=== PATIENT | female | born 1935 | race Asian ===

== ENCOUNTER 2017-05-07 14:45 | Emergency (ER) | payer MEDICARE, OTHER ==
[~2017-05-07] VITALS: Ht 154.9 cm; Wt 46.4 kg
[~2017-05-07 14:45] MED LIST: ALPR-475 PO; ASPI-496 PO; Atorvastatin Calcium PO; BUTA1CAP57 PO; CEPH-368 PO; ERYT250C8 PO; LISI-167 PO; METO25TA35 PO; OLME1TAB44 PO; ONDA4TAB10 PO; PENI250T91 PO
[2017-05-07] MEDS ORDERED: ONDANSETRON 2MG/ML, 2ML ONE (15:21)
[2017-05-07] MEDS ORDERED: LORazepam 2 MG/ML, 1ML ONE (15:22)
[2017-05-07] MEDS ORDERED: SODIUM CHLORIDE 0.9% 1,000ML IVBOLUS ONE (15:30)
[2017-05-07] MEDS ORDERED: SODIUM CHLORIDE FLUSH 10ML SYR IVF ONE (15:30)
[2017-05-07] MEDS ORDERED: LORazepam 2 MG/ML, 1ML IVPush ONE (15:30)
[2017-05-07] MEDS ORDERED: ONDANSETRON 2MG/ML, 2ML IVPush ONE (15:30)
[2017-05-07 15:49] VITALS: BP 138/81
[2017-05-07 15:51] LABS: BASOPHILS # (AUTO) 0.03 x10^3/uL (0-0.1); BASOPHILS % (AUTO) 0 % (0-1); EOSINOPHILS # (AUTO) 0.03 x10^3/uL (0-0.4); EOSINOPHILS % (AUTO) 0 % (1-7); LYMPHOCYTES # (AUTO) 2.64 x10^3/uL (1-3.4); LYMPHOCYTES % (AUTO) 24 % (22-44); MD NO; MEAN CORPUSCULAR HEMOGLOBIN 31.8 pg (27.0-34.8); MEAN CORPUSCULAR HGB CONC 33.6 g/dL (32.4-35.8); MEAN CORPUSCULAR VOLUME 94.7 fL (80-100); MEAN PLATELET VOLUME 7.1 fL (7.4-10.4); MONOCYTES # (AUTO) 0.73 x10^3/uL (0.2-0.8); MONOCYTES % (AUTO) 7 % (2-9); NEUTROPHILS # (AUTO) 7.72 x10^3/uL (1.8-6.8); NEUTROPHILS % (AUTO) 69 % (42-75); PLATELET COUNT 262 x10^3/uL (130-400); RED BLOOD COUNT 4.28 x10^6/uL (3.82-5.3)
[2017-05-07 16:00] LABS: ALBUMIN 3.2 g/dL (3.4-5.0); ANION GAP 7 mmol/L (5-15); CALCIUM 8.6 mg/dL (8.5-10.1); CHLORIDE 102 mmol/L (98-107); CREATININE 0.81 mg/dL (0.55-1.02)
== END 2017-05-07 18:31 | disposition home or self-care (01) ==
LOC: ED 16:21
DX: Z76.0 Encounter for issue of repeat prescription (principal); F41.1 Generalized anxiety disorder; I10 Essential (primary) hypertension
CPT/HCPCS: 36415; 80048; 82040; 85025; 93005; 96361; 96374; 96375; 99285; J2060; J2405; J7030

== ENCOUNTER 2019-10-25 23:33 | Inpatient (IN) | payer MEDICARE ==
[~2019-10-25] VITALS: Ht 149.9 cm; Wt 46.4 kg
[~2019-10-25 23:33] MED LIST changes: -ALPR-475 PO; +ALPR0.5T7 PO; +ERYT250C37 PO; -ERYT250C8 PO; -OLME1TAB44 PO; +OLME1TAB86 PO
--- NOTE | 2019-10-25 23:33 | NUR ---
BROUGHT IN BY MARY FROM HOME. MAYBE PATIENT CALLED 911, EMS ARRIVAL PATIENT HAVING DIFFICULTY BREATHING WITH OXYGEN SATURATION 70% RA. SOLU MEDROL 125 MG GIVEN PRESS BREAKER. CPAP ON ARRIVAL.
--- NOTE | 2019-10-25 23:45 | NUR ---
PATIENT INTUBATED. PLAN TO PLACE CENTRAL LINE.
[2019-10-26] MEDS ORDERED: ALBUTEROL SULFATE 2.5 MG/3 ML NPPB SCH
[2019-10-26] MEDS ORDERED: SODIUM CHLORIDE 0.9% 1,000ML IVBOLUS ONE
[2019-10-26] MEDS ORDERED: SODIUM CHLORIDE FLUSH 10ML SYR IVF ONE
--- NOTE | 2019-10-26 00:10 | NUR ---
CENTRAL LINE PLACED. AWAITING XRAY FOR PLACEMENT.
--- NOTE | 2019-10-26 00:15 | NUR ---
BARRERA PLACED WITH MINIMAL URINE OUTOUT.
[2019-10-26] MEDS ORDERED: PROPOFOL 100 ML IV PRN (00:19)
[2019-10-26] MEDS ORDERED: ETOMIDATE 20 MG/10 ML IVPush ONE (00:30)
[2019-10-26] MEDS ORDERED: MIDAZOLAM 1 MG/ML, 2ML IVPush ONE (00:30)
[2019-10-26] MEDS ORDERED: ROCURONIUM 10 MG/ML,10ML IVPush ONE (00:30)
--- NOTE | 2019-10-26 00:45 | NUR ---
IVF HUNG. BLOOD PRESSURE ELEVATED. AWARE.
--- NOTE | 2019-10-26 00:45 | NUR ---
XRAY DONE. [employer]AR [employer]ER AT BEDSIDE FOR BLOOD DRAW.
[2019-10-26 01:17] LABS: MEAN CORPUSCULAR HEMOGLOBIN 31.3 pg (27.0-34.8); MEAN CORPUSCULAR HGB CONC 32.3 g/dL (32.4-35.8); MEAN PLATELET VOLUME 8.3 fL (7.4-10.4); PLATELET COUNT 234 x10^3/uL (130-400); RED BLOOD COUNT 4.66 x10^6/uL (3.82-5.3); RED CELL DISTRIBUTION WIDTH 14.7 % (9.6-15.2)
[2019-10-26 01:26] LABS: ALANINE AMINOTRANSFERASE 78 U/L (12-78); ALBUMIN 3.1 g/dL (3.4-5.0); ANION GAP 8 mmol/L (5-15); CALCIUM 7.9 mg/dL (8.5-10.1); CHLORIDE 111 mmol/L (98-107); CREATININE 1.23 mg/dL (0.55-1.02)
[2019-10-26 01:30] LABS: ALKALINE PHOSPHATASE 106 U/L (45-117); BILIRUBIN,TOTAL 0.5 mg/dL (0.2-1.0); TOTAL PROTEIN 7.1 g/dL (6.4-8.2)
[2019-10-26] MEDS ORDERED: hydrALAzine 20 MG/ML, 1ML IVPush PRN (01:30)
[2019-10-26] MEDS ORDERED: morphine SULFATE 10 MG/ML, 1ML IVPush PRN (01:30)
[2019-10-26] MEDS ORDERED: DOCUSATE 100 MG CAPSULE PO PRN (01:30)
[2019-10-26] MEDS ORDERED: OXYcodone IR 5MG TABLET PO PRN (01:30)
[2019-10-26] MEDS ORDERED: PROMETHAZINE 25 MG/ML, 1ML IM PRN (01:30)
[2019-10-26] MEDS ORDERED: ONDANSETRON ODT 4 MG PO PRN (01:30)
[2019-10-26] MEDS ORDERED: ENOXAPARIN 40 MG/0.4 ML SQ SCH (01:30)
[2019-10-26 01:35] LABS: TROPONIN I 0.611 ng/mL (0.000-0.045)
[2019-10-26] MEDS ORDERED: FUROSEMIDE 40 MG/4 ML ONE (01:43)
[2019-10-26] MEDS ORDERED: CEFTRIAXONE PMX 1GM/50ML 50 ML ONE (01:44)
[2019-10-26] MEDS ORDERED: ENOXAPARIN 40 MG/0.4 ML ONE (01:44)
[2019-10-26 01:55] LABS: FREE T4 (FREE THYROXINE) 0.82 ng/dL (0.76-1.46)
[2019-10-26 01:58] LABS: TROPONIN I 0.595 ng/mL (0.000-0.045)
[2019-10-26] MEDS ORDERED: ASPIRIN 300 MG SUPP PR ONE (02:00)
[2019-10-26] MEDS ORDERED: HEPARIN 25,000 UNITS/250ML PMX 250 ML IV PRN (02:00)
[2019-10-26] MEDS ORDERED: FUROSEMIDE 40 MG/4 ML IV ONE (02:00)
[2019-10-26] MEDS ORDERED: AZITHROMYCIN 500 MG in SODIUM CHLORIDE 0.9% 250 ML IV ONE (02:00)
[2019-10-26] MEDS ORDERED: CEFTRIAXONE PMX 1GM/50ML 50 ML IV ONE (02:00)
[2019-10-26] MEDS ORDERED: HEPARIN 5,000 UNITS/ML, 1ML IV ONE ×2 (02:00→08:00)
[2019-10-26 02:01] LABS: INTERNATIONAL NORMALIZED RATIO 0.96 (0.93-1.1); PROTHROMBIN TIME 10.2 Seconds (9.6-11.5)
[2019-10-26] MEDS ORDERED: HEPARIN 25,000 UNITS/250ML PMX 250 ML ONE (02:08)
[2019-10-26] MEDS ORDERED: HEPARIN 5,000 UNITS/ML, 1ML ONE (02:08)
[2019-10-26 02:22] LABS: BASOPHILS # (AUTO) 0.04 x10^3/uL (0-0.1); BASOPHILS % (AUTO) 0 % (0-1); EOSINOPHILS # (AUTO) 0.03 x10^3/uL (0-0.4); EOSINOPHILS % (AUTO) 0 % (1-7); LYMPHOCYTES # (AUTO) 1.97 x10^3/uL (1-3.4); LYMPHOCYTES % (AUTO) 11 % (22-44); MD SCAN; MONOCYTES # (AUTO) 0.67 x10^3/uL (0.2-0.8); MONOCYTES % (AUTO) 4 % (2-9); NEUTROPHILS # (AUTO) 15.88 x10^3/uL (1.8-6.8); NEUTROPHILS % (AUTO) 85 % (42-75)
--- NOTE | 2019-10-26 02:40 | NUR ---
REPORT TO SURESH OLIVARES
[2019-10-26] MEDS ORDERED: HEPARIN GTT MC SCH (03:00)
[2019-10-26 04:08] VITALS: BP 115/60
[2019-10-26 04:20] VITALS: BP 114/65
[2019-10-26] MEDS ORDERED: ROCURONIUM 10MG/ML,5ML ONE (05:00)
[2019-10-26] MEDS ORDERED: MIDAZOLAM 1 MG/ML, 5ML ONE (05:00)
[2019-10-26] MEDS ORDERED: PROPOFOL 10 MG/ML, 100ML IV ONE (05:00)
[2019-10-26] MEDS ORDERED: ETOMIDATE 20 MG/10 ML ONE (05:00)
[2019-10-26 05:17] LABS: ALBUMIN 3.1 g/dL (3.4-5.0); ANION GAP 8 mmol/L (5-15); CALCIUM 7.5 mg/dL (8.5-10.1); CHLORIDE 112 mmol/L (98-107); CREATININE 1.13 mg/dL (0.55-1.02)
[2019-10-26] MEDS ORDERED: PROPOFOL 100 ML IV ONE (05:20)
[2019-10-26 05:24] LABS: BASOPHILS % (AUTO) 0 % (0-1); EOSINOPHILS % (AUTO) 0 % (1-7); LYMPHOCYTES % (AUTO) 4 % (22-44); MD NO; MEAN CORPUSCULAR HEMOGLOBIN 30.8 pg (27.0-34.8); MEAN CORPUSCULAR HGB CONC 31.8 g/dL (32.4-35.8); MEAN PLATELET VOLUME 8.1 fL (7.4-10.4); MONOCYTES % (AUTO) 2 % (2-9); NEUTROPHILS # (AUTO) 12.93 x10^3/uL (1.8-6.8); NEUTROPHILS % (AUTO) 94 % (42-75); PLATELET COUNT 238 x10^3/uL (130-400); RED BLOOD COUNT 4.55 x10^6/uL (3.82-5.3); RED CELL DISTRIBUTION WIDTH 14.9 % (9.6-15.2)
[2019-10-26] MEDS: ASPIRIN 81 MG TABLET EC PO SCH (07:28)
[2019-10-26] MEDS ORDERED: FENTANYL PF 100 MCG/2ML IVPush PRN (07:30)
[2019-10-26] MEDS ORDERED: SENNA 176 MG/5 ML ORAL SOL NG PRN (07:30)
[2019-10-26] MEDS ORDERED: SENNA/DOCUSATE TABLET NG PRN (07:30)
[2019-10-26] MEDS ORDERED: LACTULOSE 20 GM/30 ML UDC NG PRN (07:30)
[2019-10-26] MEDS ORDERED: LIDOCAINE-MPF 1%, 2ML ENDO PRN (07:30)
[2019-10-26] MEDS ORDERED: BISACODYL 10 MG SUPP PR PRN (07:30)
[2019-10-26] MEDS ORDERED: DEXTROSE 4 GM TAB.CHEW PO PRN (07:30)
[2019-10-26] MEDS ORDERED: PHARMACY MAY ADJ FOR RENAL FX MC SCH (07:30)
[2019-10-26] MEDS ORDERED: GLUCAGON 1 MG IM PRN (07:30)
[2019-10-26] MEDS ORDERED: DEXTROSE 50%, 50ML SYRINGE IVPush PRN (07:30)
[2019-10-26] MEDS: PROPOFOL 100 ML IV PRN ×3 (08:01→23:39)
[2019-10-26] MEDS: SODIUM CHLORIDE FLUSH 10ML SYR IVF SCH ×2 (08:07→21:00)
[2019-10-26] MEDS: FUROSEMIDE 40 MG/4 ML IV SCH ×2 (08:08→16:20)
[2019-10-26] MEDS ORDERED: FAMOTIDINE 20 MG/2 ML IVPush SCH (09:00)
[2019-10-26 09:55] LABS: TRIGLYCERIDES 75 mg/dL (50-200)
[2019-10-26 10:02] LABS: MICROSCOPIC AUTO
[2019-10-26] MEDS: MIDAZOLAM 1 MG/ML, 2ML IVPush PRN ×2 (11:50→15:25)
[2019-10-26 12:38] LABS: AMPHETAMINE SCREEN, URINE Negative (Negative); BARBITURATE SCREEN, URINE Negative (Negative); BENZODIAZEPINE SCREEN, URINE Positive (Negative); CANNABINOID SCREEN, URINE Negative (Negative); COCAINE SCREEN, URINE Negative (Negative); METHADONE SCREEN, URINE Negative (Negative); OPIATE SCREEN, URINE Negative (Negative)
[2019-10-26] MEDS: ACETAMINOPHEN 325 MG TABLET PO PRN (16:21)
--- NOTE | 2019-10-26 16:54 | NUR ---
TF RECOMMENDATION IF NEEDED: Promote at 30 ml/hr on propofol; promote at 50 ml/hr off propofol Addendum: 10/26/19 at [address] Amended: Links added.
[2019-10-26] MEDS: DOXYCYCLINE 100 MG in DEXTROSE 5% 250 ML IV SCH (19:30)
[2019-10-26] MEDS: FAMOTIDINE 20 MG/2 ML IVPush SCH (21:09)
[2019-10-26] MEDS: ATORVASTATIN 10 MG TABLET PO SCH (21:09)
[2019-10-27] MEDS: CEFTRIAXONE PMX 2GM/50ML 50 ML IV SCH (00:52)
[2019-10-27] MEDS ORDERED: AZITHROMYCIN 500 MG in SODIUM CHLORIDE 0.9% 250 ML IV SCH (01:00)
[2019-10-27 04:00] VITALS: BP 115/66
[2019-10-27 04:12] LABS: BASOPHILS # (AUTO) 0.03 x10^3/uL (0-0.1); BASOPHILS % (AUTO) 0 % (0-1); EOSINOPHILS # (AUTO) 0.03 x10^3/uL (0-0.4); EOSINOPHILS % (AUTO) 0 % (1-7); LYMPHOCYTES # (AUTO) 2.35 x10^3/uL (1-3.4); LYMPHOCYTES % (AUTO) 18 % (22-44); MD NO; MEAN CORPUSCULAR HGB CONC 32.6 g/dL (32.4-35.8); MEAN PLATELET VOLUME 8.3 fL (7.4-10.4); MONOCYTES # (AUTO) 0.75 x10^3/uL (0.2-0.8); MONOCYTES % (AUTO) 6 % (2-9); NEUTROPHILS # (AUTO) 10.12 x10^3/uL (1.8-6.8); NEUTROPHILS % (AUTO) 76 % (42-75); PLATELET COUNT 238 x10^3/uL (130-400); RED BLOOD COUNT 4.28 x10^6/uL (3.82-5.3); RED CELL DISTRIBUTION WIDTH 15.1 % (9.6-15.2)
[2019-10-27 04:21] LABS: ALANINE AMINOTRANSFERASE 47 U/L (12-78); ALBUMIN 2.6 g/dL (3.4-5.0); ANION GAP 6 mmol/L (5-15); CALCIUM 8.1 mg/dL (8.5-10.1); CHLORIDE 107 mmol/L (98-107); CREATININE 0.92 mg/dL (0.55-1.02)
[2019-10-27 04:28] LABS: ALKALINE PHOSPHATASE 70 U/L (45-117); BILIRUBIN,TOTAL 0.7 mg/dL (0.2-1.0); CHOL/HDL RATIO 2.8; CHOLESTEROL, TOTAL 171 mg/dL (140-239); HDL CHOL % 36 % (28-40); HDL CHOLESTEROL (DIRECT) 61 mg/dL (40-60); LDL CHOLESTEROL,CALCULATED 80 mg/dL (54-169); LDL/HDL RATIO 1.3 (0.5-3.0); TOTAL PROTEIN 6.1 g/dL (6.4-8.2); TRIGLYCERIDES 148 mg/dL (50-200); VLDL CHOLESTEROL 30 mg/dL (0-25)
[2019-10-27] MEDS: PROPOFOL 100 ML IV PRN ×3 (05:32→17:52)
[2019-10-27] MEDS: DOXYCYCLINE 100 MG in DEXTROSE 5% 250 ML IV SCH ×2 (08:01→21:49)
[2019-10-27] MEDS: FUROSEMIDE 40 MG/4 ML IV SCH ×2 (08:01→16:53)
[2019-10-27] MEDS: ASPIRIN 81 MG TABLET EC PO SCH (11:29)
[2019-10-27] MEDS: SODIUM CHLORIDE FLUSH 10ML SYR IVF SCH ×2 (11:29→21:49)
[2019-10-27] MEDS ORDERED: POTASSIUM CHLORIDE 40 MEQ in SODIUM CHLORIDE 0.9% 100 ML IV ONE (12:30)
[2019-10-27] MEDS: FAMOTIDINE 20 MG/2 ML IVPush SCH (21:49)
[2019-10-27] MEDS: ATORVASTATIN 10 MG TABLET PO SCH (21:49)
[2019-10-28] MEDS: HEPARIN 25,000 UNITS/250ML PMX 250 ML IV PRN ×2 (00:38→13:45)
[2019-10-28] MEDS: CEFTRIAXONE PMX 2GM/50ML 50 ML IV SCH (00:46)
[2019-10-28] MEDS: PROPOFOL 100 ML IV PRN ×4 (01:11→21:17)
[2019-10-28 04:00] VITALS: BP 140/77
[2019-10-28 05:30] LABS: BASOPHILS # (AUTO) 0.03 x10^3/uL (0-0.1); BASOPHILS % (AUTO) 0 % (0-1); EOSINOPHILS # (AUTO) 0.15 x10^3/uL (0-0.4); EOSINOPHILS % (AUTO) 2 % (1-7); LYMPHOCYTES # (AUTO) 1.97 x10^3/uL (1-3.4); LYMPHOCYTES % (AUTO) 20 % (22-44); MD NO; MEAN CORPUSCULAR HEMOGLOBIN 31.1 pg (27.0-34.8); MEAN CORPUSCULAR HGB CONC 32.6 g/dL (32.4-35.8); MEAN PLATELET VOLUME 8.5 fL (7.4-10.4); MONOCYTES # (AUTO) 0.68 x10^3/uL (0.2-0.8); MONOCYTES % (AUTO) 7 % (2-9); NEUTROPHILS # (AUTO) 7.15 x10^3/uL (1.8-6.8); NEUTROPHILS % (AUTO) 72 % (42-75); PLATELET COUNT 222 x10^3/uL (130-400); RED BLOOD COUNT 4.65 x10^6/uL (3.82-5.3); RED CELL DISTRIBUTION WIDTH 15.1 % (9.6-15.2)
[2019-10-28 05:47] LABS: PREALBUMIN 19.9 mg/dL (20.0-40.0)
[2019-10-28] MEDS: HEPARIN 5,000 UNITS/ML, 1ML IV PRN ×3 (06:29→21:28)
[2019-10-28] MEDS: FUROSEMIDE 40 MG/4 ML IV SCH ×2 (07:32→16:31)
[2019-10-28] MEDS: SODIUM CHLORIDE FLUSH 10ML SYR IVF SCH ×2 (09:00→21:18)
[2019-10-28] MEDS: ASPIRIN 81 MG TABLET EC PO SCH (09:28)
[2019-10-28] MEDS: DOXYCYCLINE 100 MG in DEXTROSE 5% 250 ML IV SCH ×2 (09:30→21:16)
--- NOTE | 2019-10-28 13:47 | NUR ---
10/27-TF GOAL: w/ propofol: PROMOTE @ 45ML/HR off propofol: PROMOTE @ 50ML/HR
[2019-10-28] MEDS ORDERED: POTASSIUM CHLORIDE 20 MEQ TAB.ER.PRT PO ONE (15:00)
[2019-10-28] MEDS: CARVEDILOL 3.125 MG TABLET PO SCH (16:31)
[2019-10-28] MEDS: SPIRONOLACTONE 25 MG TABLET PO SCH (18:03)
[2019-10-28] MEDS: ACETAMINOPHEN 325 MG TABLET PO PRN (18:03)
[2019-10-28] MEDS: ATORVASTATIN 40 MG TABLET PO SCH (21:16)
[2019-10-28] MEDS: FAMOTIDINE 20 MG/2 ML IVPush SCH (21:17)
[2019-10-29] MEDS: CEFTRIAXONE PMX 2GM/50ML 50 ML IV SCH (00:31)
[2019-10-29 04:00] VITALS: BP 113/58
[2019-10-29 04:26] LABS: BASOPHILS # (AUTO) 0.02 x10^3/uL (0-0.1); BASOPHILS % (AUTO) 0 % (0-1); EOSINOPHILS # (AUTO) 0.31 x10^3/uL (0-0.4); EOSINOPHILS % (AUTO) 3 % (1-7); LYMPHOCYTES # (AUTO) 1.26 x10^3/uL (1-3.4); LYMPHOCYTES % (AUTO) 12 % (22-44); MD NO; MEAN CORPUSCULAR HEMOGLOBIN 31.2 pg (27.0-34.8); MEAN CORPUSCULAR HGB CONC 32.5 g/dL (32.4-35.8); MEAN PLATELET VOLUME 8.2 fL (7.4-10.4); MONOCYTES # (AUTO) 0.68 x10^3/uL (0.2-0.8); MONOCYTES % (AUTO) 7 % (2-9); NEUTROPHILS # (AUTO) 7.99 x10^3/uL (1.8-6.8); NEUTROPHILS % (AUTO) 78 % (42-75); PLATELET COUNT 201 x10^3/uL (130-400); RED BLOOD COUNT 4.22 x10^6/uL (3.82-5.3); RED CELL DISTRIBUTION WIDTH 14.5 % (9.6-15.2)
[2019-10-29 04:35] LABS: ALANINE AMINOTRANSFERASE 33 U/L (12-78); ALBUMIN 2.6 g/dL (3.4-5.0); ANION GAP 7 mmol/L (5-15); CALCIUM 8.6 mg/dL (8.5-10.1); CHLORIDE 104 mmol/L (98-107); TRIGLYCERIDES 126 mg/dL (50-200)
[2019-10-29 04:37] LABS: ALKALINE PHOSPHATASE 69 U/L (45-117); BILIRUBIN,TOTAL 0.3 mg/dL (0.2-1.0); TOTAL PROTEIN 6.5 g/dL (6.4-8.2)
[2019-10-29] MEDS: PROPOFOL 100 ML IV PRN (05:57)
[2019-10-29] MEDS: CARVEDILOL 3.125 MG TABLET PO SCH (05:57)
[2019-10-29] MEDS: FUROSEMIDE 40 MG/4 ML IV SCH ×2 (07:43→16:28)
[2019-10-29] MEDS: ASPIRIN 81 MG TABLET EC PO SCH (07:43)
[2019-10-29] MEDS: SODIUM CHLORIDE FLUSH 10ML SYR IVF SCH ×2 (09:00→21:23)
[2019-10-29] MEDS: SPIRONOLACTONE 25 MG TABLET PO SCH (09:02)
[2019-10-29] MEDS: DOXYCYCLINE 100 MG in DEXTROSE 5% 250 ML IV SCH ×2 (09:03→21:23)
[2019-10-29] MEDS ORDERED: LORazepam 2 MG/ML, 1ML IVPush ONE (15:00)
[2019-10-29] MEDS: CARVEDILOL 6.25 MG TABLET PO SCH (16:25)
[2019-10-29] MEDS: FAMOTIDINE 20 MG/2 ML IVPush SCH (21:23)
[2019-10-29] MEDS: ATORVASTATIN 40 MG TABLET PO SCH (21:23)
[2019-10-30] MEDS: CEFTRIAXONE PMX 2GM/50ML 50 ML IV SCH (01:12)
[2019-10-30 03:46] LABS: BASOPHILS # (AUTO) 0.02 x10^3/uL (0-0.1); BASOPHILS % (AUTO) 0 % (0-1); EOSINOPHILS # (AUTO) 0.25 x10^3/uL (0-0.4); EOSINOPHILS % (AUTO) 4 % (1-7); LYMPHOCYTES # (AUTO) 1.19 x10^3/uL (1-3.4); LYMPHOCYTES % (AUTO) 17 % (22-44); MD NO; MEAN CORPUSCULAR HGB CONC 32.5 g/dL (32.4-35.8); MONOCYTES # (AUTO) 0.52 x10^3/uL (0.2-0.8); MONOCYTES % (AUTO) 8 % (2-9); NEUTROPHILS # (AUTO) 4.82 x10^3/uL (1.8-6.8); NEUTROPHILS % (AUTO) 71 % (42-75); PLATELET COUNT 203 x10^3/uL (130-400); RED CELL DISTRIBUTION WIDTH 14.6 % (9.6-15.2)
[2019-10-30 04:00] VITALS: BP 117/66
[2019-10-30] MEDS: CARVEDILOL 6.25 MG TABLET PO SCH ×2 (04:46→17:20)
[2019-10-30] MEDS ORDERED: LISINOPRIL 5 MG TABLET PO SCH (09:00)
[2019-10-30] MEDS: SODIUM CHLORIDE FLUSH 10ML SYR IVF SCH ×2 (09:25→20:58)
[2019-10-30] MEDS: FUROSEMIDE 40 MG/4 ML IV SCH (09:25)
[2019-10-30] MEDS: DOXYCYCLINE 100 MG in DEXTROSE 5% 250 ML IV SCH ×2 (09:26→20:58)
[2019-10-30] MEDS: ASPIRIN 81 MG TABLET EC PO SCH (09:26)
[2019-10-30] MEDS: SPIRONOLACTONE 25 MG TABLET PO SCH (09:26)
[2019-10-30] MEDS ORDERED: POTASSIUM CHLORIDE 20 MEQ TAB.ER.PRT PO ONE (10:00)
[2019-10-30 10:15] VITALS: BP 148/72
[2019-10-30 13:58] VITALS: BP 147/81
[2019-10-30] MEDS ORDERED: ENOXAPARIN 40 MG/0.4 ML SQ SCH (14:30)
[2019-10-30] MEDS: FUROSEMIDE 20 MG/2 ML IV SCH (17:20)
[2019-10-30 20:07] VITALS: BP 128/76
[2019-10-30] MEDS: ATORVASTATIN 40 MG TABLET PO SCH (20:58)
[2019-10-30] MEDS: LISINOPRIL 5 MG TABLET PO SCH (20:58)
[2019-10-31 01:16] VITALS: BP 147/71
[2019-10-31] MEDS: CEFTRIAXONE PMX 2GM/50ML 50 ML IV SCH (01:20)
[2019-10-31 05:29] LABS: ANION GAP 7 mmol/L (5-15); CALCIUM 9.5 mg/dL (8.5-10.1); CHLORIDE 101 mmol/L (98-107); CREATININE 0.96 mg/dL (0.55-1.02)
[2019-10-31 05:37] LABS: BASOPHILS # (AUTO) 0.03 x10^3/uL (0-0.1); BASOPHILS % (AUTO) 0 % (0-1); EOSINOPHILS # (AUTO) 0.07 x10^3/uL (0-0.4); EOSINOPHILS % (AUTO) 1 % (1-7); LYMPHOCYTES # (AUTO) 1.58 x10^3/uL (1-3.4); LYMPHOCYTES % (AUTO) 20 % (22-44); MD NO; MEAN CORPUSCULAR HEMOGLOBIN 31.2 pg (27.0-34.8); MEAN CORPUSCULAR HGB CONC 32.3 g/dL (32.4-35.8); MEAN PLATELET VOLUME 8.1 fL (7.4-10.4); MONOCYTES # (AUTO) 0.67 x10^3/uL (0.2-0.8); MONOCYTES % (AUTO) 9 % (2-9); NEUTROPHILS # (AUTO) 5.43 x10^3/uL (1.8-6.8); NEUTROPHILS % (AUTO) 70 % (42-75); PLATELET COUNT 255 x10^3/uL (130-400); RED BLOOD COUNT 4.77 x10^6/uL (3.82-5.3); RED CELL DISTRIBUTION WIDTH 14.5 % (9.6-15.2)
[2019-10-31 06:59] VITALS: BP 122/74
[2019-10-31] MEDS: CARVEDILOL 6.25 MG TABLET PO SCH ×2 (07:32→18:03)
[2019-10-31] MEDS: ASPIRIN 81 MG TABLET EC PO SCH (08:23)
[2019-10-31] MEDS: LISINOPRIL 5 MG TABLET PO SCH (08:24)
[2019-10-31] MEDS: ONDANSETRON 2MG/ML, 2ML IVPush PRN (08:24)
[2019-10-31] MEDS: DOXYCYCLINE 100 MG in DEXTROSE 5% 250 ML IV SCH (08:31)
[2019-10-31] MEDS ORDERED: REGADENOSON 0.4 MG/5 ML SYRINGE ONE (08:45)
[2019-10-31 09:01] VITALS: BP 148/53
[2019-10-31] MEDS: SODIUM CHLORIDE FLUSH 10ML SYR IVF SCH ×2 (13:02→20:22)
[2019-10-31] MEDS: SPIRONOLACTONE 25 MG TABLET PO SCH (13:02)
[2019-10-31] MEDS: FUROSEMIDE 20 MG/2 ML IV SCH ×2 (13:02→18:01)
[2019-10-31 13:25] VITALS: BP 104/58
[2019-10-31] MEDS: ENOXAPARIN 30 MG/0.3 ML SQ SCH (14:37)
[2019-10-31 19:14] VITALS: BP 105/60
[2019-10-31] MEDS: ATORVASTATIN 40 MG TABLET PO SCH (20:21)
[2019-10-31] MEDS: LISINOPRIL 10 MG TABLET PO SCH (20:21)
[2019-11-01] VITALS (8 sets, daily range): BP systolic 82–107; BP diastolic 49–70
[2019-11-01] MEDS: CEFTRIAXONE PMX 2GM/50ML 50 ML IV SCH (01:21)
[2019-11-01] MEDS: ONDANSETRON 2MG/ML, 2ML IVPush PRN (01:37)
[2019-11-01 03:09] LABS: CLOSTRIDIUM DIFFICILE ANTIGEN NEGATIVE; CLOSTRIDIUM DIFFICILE TOXIN NEGATIVE (Negative)
[2019-11-01] MEDS: CARVEDILOL 6.25 MG TABLET PO SCH ×2 (06:00→18:01)
[2019-11-01 06:58] LABS: CHLORIDE 99 mmol/L (98-107)
[2019-11-01 07:05] LABS: ANION GAP 10 mmol/L (5-15); CALCIUM 9.1 mg/dL (8.5-10.1); CREATININE 0.97 mg/dL (0.55-1.02)
[2019-11-01] MEDS: LISINOPRIL 10 MG TABLET PO SCH (08:50)
[2019-11-01] MEDS: CLOPIDOGREL 75 MG TABLET PO SCH (08:50)
[2019-11-01] MEDS: SPIRONOLACTONE 25 MG TABLET PO SCH (08:50)
[2019-11-01] MEDS: ASPIRIN 81 MG TABLET EC PO SCH (08:50)
[2019-11-01] MEDS: SODIUM CHLORIDE FLUSH 10ML SYR IVF SCH ×2 (08:51→20:10)
[2019-11-01] MEDS: FUROSEMIDE 20 MG/2 ML IV SCH (08:51)
[2019-11-01] MEDS ORDERED: RISPERIDONE 1 MG TAB.RAPDIS PO PRN (12:30)
[2019-11-01] MEDS: ENOXAPARIN 30 MG/0.3 ML SQ SCH (15:35)
[2019-11-01] MEDS ORDERED: FUROSEMIDE 20 MG TABLET PO SCH (17:00)
[2019-11-01] MEDS: ATORVASTATIN 40 MG TABLET PO SCH (20:10)
[2019-11-01] MEDS ORDERED: LISINOPRIL 5 MG TABLET PO SCH (21:00)
[2019-11-02 00:31] VITALS: BP 106/54
[2019-11-02] MEDS: CARVEDILOL 6.25 MG TABLET PO SCH ×2 (06:38→20:06)
[2019-11-02 08:00] VITALS: BP 114/76
[2019-11-02] MEDS ORDERED: HALOPERIDOL 5 MG/ML ONE (08:28)
[2019-11-02] MEDS ORDERED: HALOPERIDOL 5 MG/ML IV ONE (08:30)
[2019-11-02] MEDS: SODIUM CHLORIDE FLUSH 10ML SYR IVF SCH ×2 (08:34→20:07)
[2019-11-02] MEDS: SPIRONOLACTONE 25 MG TABLET PO SCH (08:43)
[2019-11-02] MEDS: FUROSEMIDE 20 MG TABLET PO SCH (08:43)
[2019-11-02] MEDS: LISINOPRIL 5 MG TABLET PO SCH (08:43)
[2019-11-02] MEDS: ASPIRIN 81 MG TABLET EC PO SCH (08:43)
[2019-11-02] MEDS: CLOPIDOGREL 75 MG TABLET PO SCH (08:43)
[2019-11-02] MEDS: QUETIAPINE 25MG TABLET PO SCH ×2 (08:44→20:07)
[2019-11-02 19:02] VITALS: BP 113/64
[2019-11-02] MEDS: ATORVASTATIN 40 MG TABLET PO SCH (20:06)
[2019-11-02] MEDS: ENOXAPARIN 30 MG/0.3 ML SQ SCH (20:12)
[2019-11-02 23:48] VITALS: BP 91/51
[2019-11-03] MEDS: CARVEDILOL 6.25 MG TABLET PO SCH ×2 (06:00→17:43)
[2019-11-03 06:40] VITALS: BP 130/65
[2019-11-03] MEDS: LISINOPRIL 5 MG TABLET PO SCH (08:30)
[2019-11-03] MEDS: SPIRONOLACTONE 25 MG TABLET PO SCH (08:30)
[2019-11-03] MEDS: FUROSEMIDE 20 MG TABLET PO SCH (08:31)
[2019-11-03] MEDS: QUETIAPINE 25MG TABLET PO SCH ×2 (08:31→22:10)
[2019-11-03] MEDS: CLOPIDOGREL 75 MG TABLET PO SCH (08:31)
[2019-11-03] MEDS: ASPIRIN 81 MG TABLET EC PO SCH (08:37)
[2019-11-03] MEDS: SODIUM CHLORIDE FLUSH 10ML SYR IVF SCH ×2 (08:53→22:30)
[2019-11-03 13:32] VITALS: BP 112/58
[2019-11-03 18:23] VITALS: BP 117/61
[2019-11-03] MEDS: ATORVASTATIN 40 MG TABLET PO SCH (22:10)
[2019-11-03] MEDS: ENOXAPARIN 30 MG/0.3 ML SQ SCH (22:30)
[2019-11-04] MEDS ORDERED: MELATONIN 3 MG TABLET PO PRN (04:00)
[2019-11-04 04:22] VITALS: BP 134/69
[2019-11-04] MEDS: CARVEDILOL 6.25 MG TABLET PO SCH (06:23)
[2019-11-04 06:37] VITALS: BP 131/61
[2019-11-04] MEDS: FUROSEMIDE 20 MG TABLET PO SCH (08:26)
[2019-11-04] MEDS: CLOPIDOGREL 75 MG TABLET PO SCH (08:26)
[2019-11-04] MEDS: SPIRONOLACTONE 25 MG TABLET PO SCH (08:26)
[2019-11-04] MEDS: ASPIRIN 81 MG TABLET EC PO SCH (08:26)
[2019-11-04] MEDS: LISINOPRIL 5 MG TABLET PO SCH (08:27)
[2019-11-04] MEDS: SODIUM CHLORIDE FLUSH 10ML SYR IVF SCH (08:38)
[2019-11-04] MEDS: QUETIAPINE 25MG TABLET PO SCH (08:38)
[2019-11-04] MEDS ORDERED: SPIR25TA PO ×2 (11:05→11:53)
[2019-11-04] MEDS ORDERED: QUET25TA7 PO (11:05)
[2019-11-04] MEDS ORDERED: CLOP75TA PO ×2 (11:05→11:53)
[2019-11-04] MEDS ORDERED: LISI5TAB7 PO ×2 (11:05→11:53)
[2019-11-04] MEDS ORDERED: FURO20TA3 PO (11:05)
[2019-11-04] MEDS ORDERED: CARV6.2512 PO ×2 (11:05→11:53)
== END 2019-11-04 15:50 | DRG 208 ==
LOC: ED 10-26 00:17 → EDIP 10-26 01:11 → ICU 10-26 02:45 → CCU 10-30 → 5SO 10-30 10:00
PROVIDERS: ADMIT Internal Medicine; ATTEND Hospitalist
PROC: 0BH17EZ Insertion of Endotracheal Airway into Trachea, Via Natural or Artificial Opening (ICD-10-PCS; principal; 2019-10-25)
PROC: 5A09457 Assistance with Respiratory Ventilation, 24-96 Consecutive Hours, Continuous Positive Airway Pressure (ICD-10-PCS; 2019-10-26)
PROC: 5A1945Z Respiratory Ventilation, 24-96 Consecutive Hours (ICD-10-PCS; 2019-10-26)
PROC: 02HV33Z Insertion of Infusion Device into Superior Vena Cava, Percutaneous Approach (ICD-10-PCS; 2019-10-26)
PROC: 0T9B30Z Drainage of Bladder with Drainage Device, Percutaneous Approach (ICD-10-PCS; 2019-10-26)
DX: J96.01 Acute respiratory failure with hypoxia (principal); J18.9 Pneumonia, unspecified organism; I21.4 Non-ST elevation (NSTEMI) myocardial infarction; G93.41 Metabolic encephalopathy; I50.43 Acute on chronic combined systolic (congestive) and diastolic (congestive) heart failure; I42.9 Cardiomyopathy, unspecified; J96.02 Acute respiratory failure with hypercapnia; I11.0 Hypertensive heart disease with heart failure; T50.2X5A Adverse effect of carbonic-anhydrase inhibitors, benzothiadiazides and other diuretics, initial encounter; E87.6 Hypokalemia; E78.5 Hyperlipidemia, unspecified; G43.909 Migraine, unspecified, not intractable, without status migrainosus; I35.1 Nonrheumatic aortic (valve) insufficiency; I16.0 Hypertensive urgency; I25.10 Atherosclerotic heart disease of native coronary artery without angina pectoris; I25.5 Ischemic cardiomyopathy; I27.20 Pulmonary hypertension, unspecified; F41.9 Anxiety disorder, unspecified; D72.829 Elevated white blood cell count, unspecified; F41.1 Generalized anxiety disorder; Z20.828 Contact with and (suspected) exposure to other viral communicable diseases; Z87.891 Personal history of nicotine dependence; Z79.899 Other long term (current) drug therapy; Z79.01 Long term (current) use of anticoagulants; Z79.82 Long term (current) use of aspirin
CPT/HCPCS: 31500; 36415; 36556; 36600; 51702; 71045; 78452; 80048; 80053; 80061; 80307; 81001; 82040; 82533; 82803; 83036; 83605; 83735; 83880; 84134; 84145; 84439; 84443; 84478; 84484; 85025; 85520; 85610; 85730; 87040; 87070; 87081; 87205; 87324; 87635; 93005; 93017; 93306; 94002; 94003; 96365; 96367; 96372; 96375; 96376; 99291; G0378; J0456; J0696; J1644; J1650; J1940; J2250; J2405; J2704; J2785; J3480; J7060; A9502; J1630; J3490; J7030; J7050